=== PATIENT | female | born 1950 | race Caucasian/White ===

== ENCOUNTER 2021-01-24 11:45 | Emergency (ER) | payer OTHER, MEDICARE ==
[2021-01-24 12:35] VITALS: BP 168/98; PULSE 87; TEMP 99; BMI 32.0
== END 2021-01-24 12:20 | disposition home or self-care (01) ==
LOC: FER 11:45
DX: R39.11 Hesitancy of micturition (principal)
CPT/HCPCS: 81003; 87086; 99283-25